=== PATIENT | male | born 1960 | race American Indian/Alaskan Native ===

== ENCOUNTER 2017-10-04 12:29 | Emergency (ER) | payer OTHER ==
[2017-10-04 14:06] LABS: Alanine Aminotransferase 27 units/L (7-56); Albumin 4.2 g/dL (3.9-5); BUN/Creatinine Ratio 10; Basophils # (Auto) 0.1 K/mm3 (0.0-0.1); Basophils % (Auto) 1.2 % (0.0-1.8); Blood Urea Nitrogen 9 mg/dL (9-20); Eosinophils # (Auto) 0.2 K/mm3 (0.0-0.4); Eosinophils % (Auto) 4.4 % (0.0-4.3); Hemoglobin 16.4 gm/dl (11.8-15.2); Hemolysis Index 48; Lipase 20 units/L (13-60); Lymphocytes # (Auto) 1.2 K/mm3 (1.2-5.4); Lymphocytes % (Auto) 24.7 % (13.4-35.0); Mean Corpuscular HGB Conc 34 % (32-34); Mean Corpuscular Hemoglobin 31 pg (28-32); Mean Corpuscular Volume 91 fl (84-94); Monocytes # (Auto) 0.5 K/mm3 (0.0-0.8); Monocytes % (Auto) 9.6 % (0.0-7.3); Platelet Count 223 K/mm3 (140-440); Red Blood Count 5.28 M/mm3 (3.65-5.03); Red Cell Distribution Width 12.7 % (13.2-15.2)
[2017-10-04 16:08] LABS: Bilirubin,Urine NEG (Negative); Blood,Urine NEG (Negative); Color,Urine Yellow (Yellow); Mucus,Urine FEW /HPF; Nitrite,Urine NEG (Negative); Protein,Urine <15 mg/dL mg/dL (Negative); WBC,Urine < 1.0 /HPF (0.0-6.0)
[2017-10-04] MEDS ORDERED: ZOFRAN IV ONE (22:42)
--- NOTE | 2017-10-04 22:51 | Emergency Department Report ---
HPI - General Chief Complaint: Abdominal Pain Time Seen by Provider: 10/04/17 22:34 - HPI HPI: This is a 56-year-old male presents to the emergency department with complaint of abdominal pain with left greater than right and some associated nausea and vomiting that has been going on for the past 5 days. He says that the abdominal pain radiates up into the left-sided chest and little. He denies any shortness of breath, fever, back pain, dysuria. No recent travel but there [place] many coworkers at the airport and recently diagnosed with the flu. He has a past medical history of GERD and diverticulitis. He has not taken anything for her symptoms prior to presentation. He does not have a primary care physician. ED Past Medical Hx - Past Medical History Previous Medical History?: Yes Hx GERD: Yes Additional medical history: diverticulitis - Surgical History Past Surgical History?: Yes Additional Surgical History: BL knee. neck surgery - Social History Smoking Status: Current Every Day Smoker Substance Use Type: Alcohol - Medications Home Medications: Home Medications Medication Instructions Recorded Confirmed Last Taken Type Ibuprofen [Motrin 800 MG tab] 800 mg PO Q8HR PRN #30 tablet 08/04/16 Unknown Rx HYDROcodone/ACETAMINOPHEN [[place] 1 each PO Q6H PRN #10 tablet 10/05/17 Unknown Rx 5-325 Tablet] Ondansetron [Zofran Odt] 4 mg PO Q8H PRN #10 tab.rapdis 10/05/17 Unknown Rx ED Review of Systems ROS: Stated complaint: CP, ABD PAIN/VOMITTING Other details as noted in HPI Comment: All other systems reviewed and negative Constitutional: denies: chills, fever Eyes: denies: eye pain, eye discharge, vision change ENT: denies: ear pain, throat pain Respiratory: denies: cough, shortness of breath, wheezing Cardiovascular: chest pain. denies: palpitations Gastrointestinal: abdominal pain, nausea, vomiting Genitourinary: denies: urgency, dysuria Musculoskeletal: denies: back pain, joint swelling, arthralgia Skin: denies: rash, lesions Neurological: denies: headache, weakness, paresthesias Physical Exam - Physical Exam Vital Signs: Vital Signs 10/04/17 12:45 Temperature 98.3 F Pulse Rate 75 Respiratory 14 Rate Blood Pressure 160/85 O2 Sat by Pulse 98 Oximetry Physical Exam: GENERAL: The patient is well-developed well-nourished. HENT: Normocephalic. Atraumatic. Patient has moist mucous membranes. EYES: Extraocular motions are intact. Pupils equal reactive to light bilaterally. NECK: Supple. Trachea is midline. CHEST/LUNGS: Clear to auscultation. There is no respiratory distress noted. There is some reproducible tenderness to palpation along the chest wall. HEART/CARDIOVASCULAR: Regular. There is no tachycardia. There is no murmur. ABDOMEN: Abdomen is soft. There is some bilateral upper quadrant and left- sided abdominal tenderness to palpation. No guarding or rebound tenderness. Patient has normal bowel sounds. There is no abdominal distention. SKIN: Skin is warm and dry. NEURO: The patient is awake, alert, and oriented. The patient is cooperative. The patient has no focal neurologic deficits. The patient has normal speech. MUSCULOSKELETAL: There is no tenderness or deformity. There is no limitation range of motion. There is no evidence of acute injury. ED Course Vital Signs 10/04/17 12:45 Temperature 98.3 F Pulse Rate 75 Respiratory 14 Rate Blood Pressure 160/85 O2 Sat by Pulse 98 Oximetry ED Medical Decision Making - Lab Data Result diagrams: 10/04/17 13:28 10/04/17 13:28 - EKG Data -: EKG Interpreted by Me EKG shows normal: sinus rhythm, axis, intervals, QRS complexes (Q waves to the septal leads), ST-T waves Rate: normal - EKG Data When compared to previous EKG there are: previous EKG unavailable Interpretation: other (sinus rhythm, Q waves to the septal leads) - Radiology Data Radiology results: report reviewed, image reviewed interpreted by me: Chest x-ray does not show any acute process. There are no pleural effusions, obvious pneumonia and there is no pneumothorax. EXAM: CT ABDOMEN PELVIS W CON HISTORY: Abd pain TECHNIQUE: Routine axial imaging was obtained of the abdomen and pelvis following the intravenous injection of 100 cc of Omnipaque 350. Delayed axial imaging was obtained through the kidneys ureters and bladder. Sagittal coronal reconstructions were reviewed. FINDINGS: The lung bases are clear. Pleural fluid is not seen. The liver, gallbladder, pancreas, spleen, and adrenal glands appear normal. The kidneys enhance normally. There is no evidence of hydronephrosis. The vascular structures enhance normally. The bowel loops are normal in caliber and course. The appendix appears normal. There is no evidence of free fluid or adenopathy. In the pelvis the prostate gland and bladder appear normal. The skeletal structures reveal mild facet arthropathy changes in the lower lumbar spine. There also mild arthritic changes of the right hip joint. IMPRESSION: No acute process in the abdomen and pelvis. Mild facet arthropathy changes lower lumbar spine with mild arthritic changes of the right hip joint. Transcribed By: PITA Dictated By: LAURA JASMINE MD Electronically Authenticated By: LAURA JASMINE MD Signed Date/Time: 10/04/172014 - Medical Decision Making Patient presents with a five-day history of abdominal pain with some nausea and vomiting and then some of the pain seems to go up towards the chest. The chest pain is reproducible to palpation of the chest wall. EKG does not show any signs of ST elevation AL or dysrhythmia. Troponin negative. The rest of his labs are unremarkable as well including the belly labs such as bilirubin, lipase and LFTs. CT of the abdomen and pelvis with IV contrast does not show any acute process or any etiology of the patient's symptoms. Vital signs stable throughout his ED course including being afebrile. He appears safe for discharge home at this time. He was given some anti-emetics and a very small amount of pain medication. He has been given multiple referrals for primary care. He was given a referral for gastroenterology and cardiology. He has been encouraged to return to the emergency Department with any worsening of his symptoms or any acute distress. He is very low on the Heart score criteria and has a JIMMIE score of 0-1 depending on whether his pain is considered angina, which I do not believe it is. The patient is low on the well's score criteria and negative on the pulmonary embolism rule out criteria. - Differential Diagnosis gastritis, pancreatitis, colitis, costochondritis Critical Care Time: No Critical care attestation.: If time is entered above; I have spent that time in minutes in the direct care of this critically ill patient, excluding procedure time. ED Disposition Clinical Impression: Chest wall pain Abdominal pain Qualifiers: Abdominal location: generalized Qualified Code(s): R10.84 - Generalized abdominal pain Nausea & vomiting Qualifiers: Vomiting type: unspecified Vomiting Intractability: non-intractable Qualified Code(s): R11.2 - Nausea with vomiting, unspecified Disposition: - TO HOME OR SELFCARE Is pt being admited?: No Condition: Stable Instructions: Costochondritis (ED), Acute Nausea and Vomiting (ED), Abdominal Pain (ED) Additional Instructions: I have given you multiple referrals for primary care. Please try and follow up with a primary care doctor in the next 2 days if possible. I have given him a referral for Dr. Gómez, a local process tank tender, to follow up regarding her abdominal pains. I have given you a referral for a local manager salt, Dr. White, in case she would like to follow-up regarding the chest discomfort. However he should return to the emergency department immediately with any worsening of her symptoms, inability to keep down liquid or stay hydrated, or with any acute distress. You have been prescribed a medication that is sedating and therefore should not be taken prior to driving, working, and responsible for children and in no way should be mixed with alcohol of any quantity. Prescriptions: HYDROcodone/ACETAMINOPHEN [[place] 5-325 Tablet] 1 each PO Q6H PRN #10 tablet PRN Reason: Pain Ondansetron [Zofran Odt] 4 mg PO Q8H PRN #10 tab.rapdis PRN Reason: Nausea Referrals: RAN GÓMEZ MD [Staff Physician] - 3-5 Days TAWANA WHITE MD [Staff Physician] - 3-5 Days EFRA BYRD MD [Staff Physician] - 3-5 Days FLOWER LEACH MD [Staff Physician] - 3-5 Days Forms: Work/School Release Form(ED) Time of Disposition: 00:28
--- NOTE | 2017-10-05 00:12 | XRay Report ---
FINAL REPORT EXAM: XR CHEST ROUTINE 2V HISTORY: CP TECHNIQUE: PA and lateral views of the chest were submitted. FINDINGS: Heart size and mediastinum appear normal. The lungs are clear. The lungs are slightly hyperinflated. Pleural fluid is not seen. The skeletal structures appear well maintained. IMPRESSION: Slight hyperinflation. No acute infiltrates or congestion.
--- NOTE | 2017-10-05 00:17 | Cat Scan Report ---
FINAL REPORT EXAM: CT ABDOMEN PELVIS W CON HISTORY: Abd pain TECHNIQUE: Routine axial imaging was obtained of the abdomen and pelvis following the intravenous injection of 100 cc of Omnipaque 350. Delayed axial imaging was obtained through the kidneys ureters and bladder. Sagittal coronal reconstructions were reviewed. FINDINGS: The lung bases are clear. Pleural fluid is not seen. The liver, gallbladder, pancreas, spleen, and adrenal glands appear normal. The kidneys enhance normally. There is no evidence of hydronephrosis. The vascular structures enhance normally. The bowel loops are normal in caliber and course. The appendix appears normal. There is no evidence of free fluid or adenopathy. In the pelvis the prostate gland and bladder appear normal. The skeletal structures reveal mild facet arthropathy changes in the lower lumbar spine. There also mild arthritic changes of the right hip joint. IMPRESSION: No acute process in the abdomen and pelvis. Mild facet arthropathy changes lower lumbar spine with mild arthritic changes of the right hip joint.
[2017-10-05 01:12] VITALS: BP 148/93
== END 2017-10-05 01:13 | disposition home or self-care (01) ==
LOC: ED 12:29
DX: R10.84 Generalized abdominal pain (principal); R11.2 Nausea with vomiting, unspecified; R07.89 Other chest pain; K21.9 Gastro-esophageal reflux disease without esophagitis; F17.200 Nicotine dependence, unspecified, uncomplicated
CPT/HCPCS: 36415; 71046; 74177; 80053; 81001; 83690; 84484; 85025; 93005; 93010; 96374; 99284; J2405; Q9967